=== PATIENT | male | born 1935 | race Caucasian/White ===

== ENCOUNTER 2017-08-11 09:53 | Inpatient (IN) | payer MEDICARE ==
[~2017-08-11] VITALS: Ht 175.3 cm; Wt 104.6 kg
--- NOTE | 2017-08-11 09:53 | NUR ---
BIB [facility] FROM HOME, DIZZINESS X 3 DAYS. PLACED ON MONITOR. AWAITING MD ORDER
--- NOTE | 2017-08-11 10:15 | NUR ---
RAC #20 IV ACCESS. BLOOD SAMPLE COLLECTED SENT TO LAB
--- NOTE | 2017-08-11 10:16 | NUR ---
CHARGE MASTER SPECIALIST AT BEDSIDE
[2017-08-11 10:18] LABS: BASOPHILS # (AUTO) 0.6 /CMM (0.0-0.2); BASOPHILS % (AUTO) 4.6 % (0.0-2.0); EOSINOPHILS # (AUTO) 0.1 /CMM (0.0-0.7); EOSINOPHILS % (AUTO) 0.6 % (0.0-6.0); HEMATOCRIT 39 % (39-51); HEMOGLOBIN 13.4 g/dL (13.5-17.5); LYMPHOCYTES % (AUTO) 7.5 % (20.0-44.0); MEAN CORPUSCULAR HEMOGLOBIN 27 PG (26.0-33.0); MEAN CORPUSCULAR HGB CONC 34 g/dl (31.0-36.0); MEAN CORPUSCULAR VOLUME 80 fL (80-96); MONOCYTES # (AUTO) 1.6 /CMM (0.1-1.30); MONOCYTES % (AUTO) 11.9 % (2.0-12.0); NEUTROPHILS # (AUTO) 10.5 /CMM (1.8-8.9); NEUTROPHILS % (AUTO) 75.4 % (43.0-81.0); PLATELET COUNT (AUTO) 141 /CMM (150-450); RDW COEFFICIENT OF VARIATION 13.8 (11.5-15.0); RED BLOOD CELL COUNT(AUTO) 4.93 MIL/uL (4.5-6.0); WHITE BLOOD COUNT (AUTO) 13.8 K/uL (4.3-11.0)
[2017-08-11 10:30] LABS: CALCIUM, SERUM 8.4 mg/dL (8.5-10.1); CARBON DIOXIDE 27 mmol/L (21-32); CHLORIDE 102 mmol/L (98-107); GLUCOSE 157 mg/dL (74-106); POTASSIUM 3.9 mmol/L (3.5-5.1); SODIUM SERUM 137 mmol/L (136-145); UREA NITROGEN, BLOOD 16 mg/dL (7-18)
[2017-08-11 10:38] LABS: TROPONIN I < 0.017 ng/mL (0.00-0.056)
[2017-08-11 10:43] LABS: ALANINE AMINOTRANSFERASE 25 U/L (12-78); ALBUMIN 3.5 g/dL (3.4-5.0); ALKALINE PHOSPHATASE 59 U/L (46-116); ASPARTATE AMINOTRANSFERASE 18 U/L (15-37); B-TYPE NATRIURETIC PEPTIDE 359 PG/ML (0-125); BILIRUBIN,DIRECT 0.2 mg/dL (0.0-0.2); BILIRUBIN,TOTAL 1.2 mg/dL (0.2-1.0); TOTAL PROTEIN, SERUM 6.7 g/dL (6.4-8.2)
[2017-08-11] MEDS ORDERED: ROSU20TA PO (10:59)
--- NOTE | 2017-08-11 11:35 | NUR ---
PT TAKEN TO CT VIA CELESTINO
[2017-08-11] MEDS ORDERED: FUROSEMIDE 40 MG/4 ML VIAL ONE (11:41)
[2017-08-11 11:44] LABS: INR 1.05 (0.87-1.13); PROTHROMBIN TIME 10.9 SECS (9.5-12.7)
--- NOTE | 2017-08-11 11:58 | NUR ---
CALLED [email or web address], BUG TRIMMER WAS PAGED.
[2017-08-11] MEDS ORDERED: FUROSEMIDE 40 MG/4 ML VIAL IV ONE (12:00)
--- NOTE | 2017-08-11 12:09 | NUR ---
GAVE REPORT TO BJORN CHARGE NURSE ADMITTING DX DIZZINESS MD DR CEDEÑO
[2017-08-11] MEDS ORDERED: IV NS 0.9% 1,000 ML IV PRN ×2 (12:31→13:00)
--- NOTE | 2017-08-11 12:32 | NUR ---
URINE SAMPLE COLLECTED SENT TO LAB
[2017-08-11 12:38] LABS: APPEARANCE,URINE Clear (CLEAR); BILIRUBIN,URINE Negative (NEGATIVE); BLOOD, URINE Trace-intact Ery/uL (NEGATIVE); COLOR,URINE Yellow (YELLOW); KETONES,URINE Negative (NEGATIVE); LEUKOCYTE ESTERASE ,URINE Negative (NEGATIVE); NITRITE, URINE Negative (NEGATIVE); PH,URINE 5.5 (5.0-8.0); PROTEIN,URINE Negative (NEGATIVE); UGLUCOSE Negative (NEGATIVE); UROBILINOGEN,URINE 0.2 EU/dL (0.2)
[2017-08-11 12:39] LABS: BACTERIA,URINE Rare /HPF (None Seen); RBC,URINE 0-2 /HPF (0-2); SQUAMOUS EPITHELIAL CELL,UR Rare /HPF (None Seen); WBC,URINE 0-2 /HPF (0-3)
--- NOTE | 2017-08-11 12:40 | NUR ---
CALLED XRAY TO FOLLOW UP ON ULTRSOUND DOPPLER
[2017-08-11] MEDS ORDERED: MAGNESIUM HYDROXIDE 30 ML UDC PO PRN (13:00)
[2017-08-11] MEDS ORDERED: ZOLPIDEM TARTRATE 5 MG TABLET PO PRN (13:00)
[2017-08-11] MEDS ORDERED: HYDROCODONE/APAP 5/325MG 1 EACH TABLET PO PRN (13:00)
[2017-08-11] MEDS ORDERED: ACETAMINOPHEN 325 MG TABLET PO PRN (13:00)
[2017-08-11] MEDS ORDERED: Z GUARD REMEDY 2 OZ OINT TP PRN (13:00)
[2017-08-11] MEDS ORDERED: ONDANSETRON HCL/PF 4 MG/2 ML VIAL IVP PRN (13:00)
[2017-08-11] MEDS ORDERED: MAG HYDROX/AL HYDROX/SIMETH 30 ML UDC PO PRN (13:00)
[2017-08-11 14:00] VITALS: BP 123/60
--- NOTE | 2017-08-11 14:00 | NUR ---
RN NOTE PT IS AOX4, AMBULATES, STEADY, IV IN L AC 20 G, INTACT. ON TELE MONITOR SR, 76. DENIES PAIN, CO COUGH DUE TO RECENT COLD. CALL LIGHT WITHIN REACH, BED IN LOW AND LOCKED POSITION. WILL MONITOR.
[2017-08-11] MEDS: ENOXAPARIN SODIUM 40 MG/0.4 ML DISP.SYRIN SQ SCH (14:20)
--- NOTE | 2017-08-11 19:30 | NUR ---
RN INITIAL NOTES PATIENT IS ALERT AND ORIENTED. ABLE TO MAKE NEEDS KNOWN AND DENIES ANY PAIN AND DISCOMFORT. ON ROOM AIR WITH NO DISTRESS. PATIENT IS SR ON TELE WITH HR OF 72. PATIENT ABLE TO MOVE AROUND BED ADLIB, WITH NO DISTRESS AND NO SOB. PATIENT AB LE TO AMBULATE WITH STEADY GAIT, DENIES DIZZINESS AND LIGHTHEADEDNESS. NO DISTRESS. NO EPISODE OF SYNCOPE. IVF ORDERED. PATIENT'S NEEDS ANTICIPATED AND MET. SAFETY AND COMFORT ENSURED. BED IN LOW AND LOCKED POSITION. CALL LIGHT IN REACH. WILL MONITOR.
[2017-08-11 20:00] VITALS: BP 91/37
[2017-08-12] VITALS: BP 127/46
[2017-08-12 04:00] VITALS: BP_SYST 103; BP_SYST 142; BP_DIAS 60; BP_DIAS 64
[2017-08-12 06:32] LABS: BASOPHILS % (AUTO) 0.2 % (0.0-2.0); EOSINOPHILS # (AUTO) 0.1 /CMM (0.0-0.7); EOSINOPHILS % (AUTO) 1.5 % (0.0-6.0); HEMATOCRIT 40 % (39-51); HEMOGLOBIN 13.4 g/dL (13.5-17.5); LYMPHOCYTES # (AUTO) 1.2 /CMM (0.8-4.8); LYMPHOCYTES % (AUTO) 12.3 % (20.0-44.0); MEAN CORPUSCULAR HEMOGLOBIN 27 PG (26.0-33.0); MEAN CORPUSCULAR HGB CONC 34 g/dl (31.0-36.0); MEAN CORPUSCULAR VOLUME 81 fL (80-96); MONOCYTES # (AUTO) 1.1 /CMM (0.1-1.30); MONOCYTES % (AUTO) 11.7 % (2.0-12.0); NEUTROPHILS % (AUTO) 74.3 % (43.0-81.0); PLATELET COUNT (AUTO) 137 /CMM (150-450); RED BLOOD CELL COUNT(AUTO) 4.89 MIL/uL (4.5-6.0); WHITE BLOOD COUNT (AUTO) 9.4 K/uL (4.3-11.0)
--- NOTE | 2017-08-12 06:37 | NUR ---
RN CLOSING NOTES PATIENT WITH NO ACUTE CHANGE IN CONDITION OBSERVED OVERNIGHT. PATIENT IN NO DISTRESS. REMAINS SR ON TELE WITH HR OF 94. IVF ORDERED. SLEPT COMFORTABLY THROUGH THE SHIFT. ASSISTED WITH ADLS NEEDED, STEADY GAIT NOTED, NO EPISODE OF SYNCOPE. FALL AND SAFETY PRECAUTIONS OBSERVED OVERNIGHT. IVF ORDERED. NEEDS ANTICIPATED AND MET. ALL DUE MEDS GIVEN ORDERED. CALL LIGHT IN REACH. WILL ENDORSE ACCORDINGLY FOR CONTINUITY OF CARE.
[2017-08-12 07:10] LABS: CALCIUM, SERUM 8.6 mg/dL (8.5-10.1); CARBON DIOXIDE 25 mmol/L (21-32); CHLORIDE 104 mmol/L (98-107); GLUCOSE 143 mg/dL (74-106); MAGNESIUM 2.1 mg/dL (1.8-2.4); PHOSPHORUS 2.5 mg/dL (2.5-4.9); POTASSIUM 3.7 mmol/L (3.5-5.1); SODIUM SERUM 138 mmol/L (136-145); UREA NITROGEN, BLOOD 16 mg/dL (7-18)
[2017-08-12 08:00] VITALS: BP 124/69
[2017-08-12] MEDS ORDERED: ATORVASTATIN 40 MG TABLET PO SCH (09:00)
[2017-08-12 09:30] LABS: CHOLESTEROL 123 mg/dL (<200); HDL CHOLESTEROL 47 mg/dL (40-60); LDL 63 mg/dL (0-99); THYROID STIMULATING HORMONE 1.159 uIU/mL (0.358-3.74); TRIGLYCERIDES 144 mg/dL (30-150)
[2017-08-12 12:00] VITALS: BP 124/57
[2017-08-12] MEDS: ENOXAPARIN SODIUM 40 MG/0.4 ML DISP.SYRIN SQ SCH (13:00)
--- NOTE | 2017-08-12 13:00 | NUR ---
RN NOTE PT DISCHARGED HOME WITH , EXIT CARE DONE DISCHARGE INSTRUCTION GIVEN TO PT, TEACHING DONE TO PT, VERBALIZED UNDERSTANDING, SKIN IS INTACT, PAPERS SIGNED, BELONGINGS GIVEN TO PT. IV REMOVED, ID BAND REMOVED. PT LEFT VIA OWN TRANSPORTATION IN STABLE CONDITION. PRESCRIPTION GIVEN TO PT, AND FAXED TO [facility] AT [place].
== END 2017-08-12 13:30 | disposition home or self-care (01) | DRG 74 ==
LOC: ER 09:55 → TELE1 11:51 → MEDSG1 08-12 13:28
PROVIDERS: ADMIT Internal Medicine; ATTEND Internal Medicine
DX: G90.8 Other disorders of autonomic nervous system (principal); I82.412 Acute embolism and thrombosis of left femoral vein; B34.9 Viral infection, unspecified; E78.5 Hyperlipidemia, unspecified; Z79.899 Other long term (current) drug therapy
CPT/HCPCS: 36415; 70450-TC; 71010-TC; 80048-TC; 80061-TC; 80076-TC; 81000-TC; 83735-TC; 83880; 84100-TC; 84443-TC; 84484-TC; 85025-TC; 85378-TC; 85730-TC; 87040-TC; 87081-TC; 93307-TC; 93880-TC; 93970-TC; A4606; J1650; J1940; J7030; Z7610

== ENCOUNTER 2025-07-31 11:53 | Inpatient (IN) | payer MEDICARE ==
[~2025-07-31] VITALS: Ht 175.3 cm; Wt 122.9 kg
[~2025-07-31 11:53] MED LIST: ROSU20TA2 PO
[2025-07-31 12:38] LABS: PLATELET COUNT (AUTO) 211 K/uL (150-450); RED BLOOD CELL COUNT(AUTO) 4.55 MIL/uL (4.5-6.0); RED CELL DISTRIBUTION WIDTH 16.2 % (11.5-15.0); WHITE BLOOD COUNT (AUTO) 10.5 K/uL (4.3-11.0)
[2025-07-31 12:45] LABS: INR 1.07 (0.91-1.10)
[2025-07-31 12:49] LABS: CALCIUM, SERUM 8.3 mg/dL (8.5-10.1); CREATININE 1.5 mg/dL (0.6-1.3); SODIUM SERUM 141 mmol/L (136-145); UREA NITROGEN, BLOOD 20 mg/dL (7-18)
[2025-07-31 12:55] LABS: LACTIC ACID 3.6 mmol/L (0.4-2.0)
[2025-07-31 13:00] LABS: ASPARTATE AMINOTRANSFERASE 17 U/L (15-37); TOTAL PROTEIN, SERUM 6.9 g/dL (6.4-8.2)
[2025-07-31] MEDS ORDERED: CEFTRIAXONE 1GM BAG (ER ONLY) 50 ML IV ONE (13:30)
[2025-07-31] MEDS: CEFTRIAXONE 1GM BAG (ER ONLY) 1 GM/50 ML PIGGYBACK IV ONE (13:30)
[2025-07-31] MEDS: IV NS 0.9% 1,000 ML BAG IV ONE (13:35)
[2025-07-31 13:42] LABS: APPEARANCE,URINE CLEAR (CLEAR); BLOOD, URINE NEGATIVE Ery/uL (NEGATIVE); LEUKOCYTE ESTERASE ,URINE NEGATIVE (NEGATIVE); NITRITE, URINE NEGATIVE (NEGATIVE); UGLUCOSE NEGATIVE (NEGATIVE)
[2025-07-31 13:52] LABS: ADD URINE CULTURE NO; HYALINE CASTS, URINE Few /LPF (None Seen); SQUAMOUS EPITHELIAL CELL,UR None Seen /HPF (None Seen)
[2025-07-31] MEDS ORDERED: MAGNESIUM HYDROXIDE 30 ML UDC PO PRN (14:30)
[2025-07-31] MEDS ORDERED: ACETAMINOPHEN 325 MG TABLET PO PRN (14:30)
[2025-07-31] MEDS ORDERED: MAG HYDROX/AL HYDROX/SIMETH 30 ML UDC PO PRN (14:30)
[2025-07-31] MEDS ORDERED: Z GUARD REMEDY 4 OZ OINT TP PRN (14:30)
[2025-07-31] MEDS ORDERED: ZOLPIDEM TARTRATE 5 MG TABLET PO PRN (14:30)
[2025-07-31] MEDS ORDERED: ONDANSETRON HCL/PF 4 MG/2 ML VIAL IVP PRN (14:30)
[2025-07-31] MEDS ORDERED: LOSA50TA39 PO (14:57)
[2025-07-31] MEDS ORDERED: CHOL500062 PO (14:57)
[2025-07-31] MEDS ORDERED: DONE5TAB34 PO (14:57)
[2025-07-31] MEDS ORDERED: ROSU40TA23 PO (14:57)
[2025-07-31] MEDS ORDERED: MOUNJARO SQ (14:57)
[2025-07-31] MEDS: IV 1/2NS 1000 ML 1,000 ML IV PRN (15:02)
[2025-07-31] MEDS: ENOXAPARIN SODIUM 40 MG/0.4 ML DISP.SYRIN SQ SCH (15:04)
[2025-07-31 16:00] VITALS: BP 120/76; TEMP 98.1; O2SAT 94
[2025-07-31 20:00] VITALS: BP_SYST 125; BP_SYST 133; BP_SYST 135; BP_DIAS 64; BP_DIAS 68; BP_DIAS 75; TEMP 98.8; O2SAT 98
[2025-08-01 06:26] LABS: PLATELET COUNT (AUTO) 191 K/uL (150-450); RED BLOOD CELL COUNT(AUTO) 4.49 MIL/uL (4.5-6.0); RED CELL DISTRIBUTION WIDTH 16.3 % (11.5-15.0); WHITE BLOOD COUNT (AUTO) 7.5 K/uL (4.3-11.0)
[2025-08-01 06:46] LABS: LDL 44.0 mg/dL (0-99)
[2025-08-01 06:50] LABS: CALCIUM, SERUM 8.4 mg/dL (8.5-10.1); CREATININE 1.4 mg/dL (0.6-1.3); PHOSPHORUS 3.7 mg/dL (2.5-4.9); SODIUM SERUM 139.0 mmol/L (136-145); UREA NITROGEN, BLOOD 21.0 mg/dL (7-18)
[2025-08-01] MEDS: PANTOPRAZOLE 40 MG TABLET.DR PO SCH (07:55)
[2025-08-01 08:00] VITALS: BP 128/74; TEMP 98.1; O2SAT 95
[2025-08-01] MEDS: IV NS 0.9% 1,000 ML IV PRN (10:23)
[2025-08-01 16:00] VITALS: BP 126/88; TEMP 98.8; O2SAT 96
[2025-08-01 16:17] LABS: CREATININE, URINE 130.6 MG/DL (30.0-125.0); URINE SODIUM, RANDOM 79.0 mmol/l (40-220); URINE TOTAL PROTEIN 22.3 mg/dL (0-11.9)
[2025-08-01 20:00] VITALS: BP 108/52; TEMP 97.9; O2SAT 95
[2025-08-01 22:30] VITALS: BP 118/67; TEMP 98; O2SAT 98
[2025-08-02 06:20] LABS: ASPARTATE AMINOTRANSFERASE 19.0 U/L (15-37); CALCIUM, SERUM 8.2 mg/dL (8.5-10.1); CREATININE 1.3 mg/dL (0.6-1.3); PHOSPHORUS 4.1 mg/dL (2.5-4.9); SODIUM SERUM 141.0 mmol/L (136-145); TOTAL PROTEIN, SERUM 6.1 g/dL (6.4-8.2); UREA NITROGEN, BLOOD 19.0 mg/dL (7-18)
[2025-08-02 06:23] LABS: PLATELET COUNT (AUTO) 174 K/uL (150-450); RED BLOOD CELL COUNT(AUTO) 4.00 MIL/uL (4.5-6.0); RED CELL DISTRIBUTION WIDTH 16.4 % (11.5-15.0); WHITE BLOOD COUNT (AUTO) 6.9 K/uL (4.3-11.0)
[2025-08-02 06:37] LABS: CREATINE KINASE, TOTAL 62.0 U/L (39-308)
[2025-08-02 08:00] VITALS: BP 137/57; TEMP 97.9; O2SAT 98
[2025-08-03 05:11] LABS: PTH, INTACT 24 pg/mL (15-65)
[2025-08-05 11:10] LABS: *SPE A/G RATIO 1.3 (0.7-1.7); *SPE ALBUMIN 3.3 g/dL (2.9-4.4); *SPE ALPHA-1-GLOBULIN 0.2 g/dL (0.0-0.4); *SPE ALPHA-2-GLOBULIN 0.8 g/dL (0.4-1.0); *SPE BETA GLOBULIN 0.9 g/dL (0.7-1.3); *SPE GLOBULIN, TOTAL 2.5 g/dL (2.2-3.9); *SPE M-SPIKE Not Observed g/dL (Not Observed); *SPE PROTEIN TOTAL 5.8 g/dL (6.0-8.5); *SPEGAMMA GLOBULIN 0.6 g/dL (0.4-1.8)
== END 2025-08-02 17:25 | disposition home health service (06) | DRG 641 ==
LOC: ER 11:56 → MED 13:39
DX: E86.0 Dehydration (principal); D64.9 Anemia, unspecified; E11.65 Type 2 diabetes mellitus with hyperglycemia; E66.9 Obesity, unspecified; E78.5 Hyperlipidemia, unspecified; F03.90 Unspecified dementia, unspecified severity, without behavioral disturbance, psychotic disturbance, mood disturbance, and anxiety; Z68.41 Body mass index [BMI] 40.0-44.9, adult; R55 Syncope and collapse; E83.89 Other disorders of mineral metabolism; Z86.718 Personal history of other venous thrombosis and embolism; R53.1 Weakness
CPT/HCPCS: 36415; 71045-TC; 76770-TC; 80048-TC; 80053-TC; 80061-TC; 80076-TC; 81001; 82550-TC; 82570-TC; 83605-TC; 83735-TC; 83970; 84100-TC; 84155; 84165; 84300-TC; 84443-TC; 85025-TC; 85730-TC; 87040-TC; 87086-TC; 93307-TC; 97110-TC; 97116-TC; 97530-TC; A4223; G0378; J0696; J1650; J3490; J7030